=== PATIENT | female | born 1960 | race Caucasian/White ===

== ENCOUNTER 2017-11-24 21:18 | Emergency (ER) | payer BC ==
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
[2017-11-24] MEDS ORDERED: IBUPROFEN 600 MG TABLET (FP) PO ONE ×2 (21:32→21:33)
[2017-11-24 21:40] VITALS: BP 146/81; PULSE 62; TEMP 98; BMI 37.8
== END 2017-11-24 22:07 | disposition home or self-care (01) ==
LOC: FER 21:18
DX: S13.4XXA Sprain of ligaments of cervical spine, initial encounter (principal); V73.5XXA Driver of bus injured in collision with car, pick-up truck or van in traffic accident, initial encounter; Y93.89 Activity, other specified; Y92.410 Unspecified street and highway as the place of occurrence of the external cause; Y99.0 Civilian activity done for income or pay
CPT/HCPCS: 72050-TC-FY; 99281-25

== ENCOUNTER 2020-12-09 01:45 | Emergency (ER) | payer BC ==
[2020-12-09 01:54] VITALS: BP 129/71; PULSE 70; TEMP 98.2; BMI 37.9
[2020-12-09] MEDS ORDERED: IBUPROFEN 400 MG TABLET (FP) PO ONE ×2 (04:09→04:11)
[2020-12-09] MEDS ORDERED: METOCLOPRAMIDE HCL INJECTION 10 MG/2 ML VIAL IVPUSH ONE (04:12)
== END 2020-12-09 04:24 | disposition home or self-care (01) ==
LOC: FER 01:45
PROC: 3E033NZ Introduction of Analgesics, Hypnotics, Sedatives into Peripheral Vein, Percutaneous Approach (ICD-10-PCS; principal; 2020-12-09)
DX: M25.562 Pain in left knee (principal)
CPT/HCPCS: 93971-TC; 99284-25

== ENCOUNTER 2021-08-06 04:29 | Day surgery (SDC) | payer BC ==
[2021-08-02 15:38] VITALS: BMI 38.9
[~2021-08-06 04:29] MED LIST: BUPIVACAINE HCL/PF 0.5% (5MG/ML) 10 ML VIAL IJ ONE
[2021-08-06] MEDS ORDERED: BUPIVACAINE HCL/PF 0.5% (5MG/ML) 10 ML VIAL ONE ×2 (10:14→10:17)
[2021-08-06] MEDS ORDERED: PROPOFOL 20 ML ONE (11:03)
[2021-08-06] MEDS ORDERED: MIDAZOLAM HCL 2 MG/2 ML SINGLE DOSE VIAL ONE (11:04)
[2021-08-06] MEDS ORDERED: ceFAZolin SODIUM 1 GM VIAL IVPB ONE (11:40)
[2021-08-06] MEDS ORDERED: BUPIVACAINE HCL/PF 0.5% (5MG/ML) 10 ML VIAL IJ ONE (12:15)
[2021-08-06] MEDS ORDERED: ONDANSETRON 4 MG/2 ML VIAL IVPUSH PRN (13:53)
[2021-08-06] MEDS ORDERED: oxyCODONE HCL 5 MG TABLET PO PRN ×2 (13:53)
[2021-08-06] MEDS ORDERED: LACTATED RINGERS SOLUTION 1,000 ML IV SCH (14:00)
[2021-08-06] MEDS ORDERED: oxyCODONE HCL 5 MG TABLET ONE (14:05)
[2021-08-06] MEDS ORDERED: oxyCODONE HCL 5 MG TABLET PO ONE (14:08)
[2021-08-06 15:03] VITALS: BP 143/63; PULSE 51; TEMP 97.1
== END 2021-08-06 15:06 | disposition home or self-care (01) ==
LOC: JASU-SURG 04:29
PROVIDERS: ATTEND Orthopaedic Surgery
PROC: 0SBD4ZZ Excision of Left Knee Joint, Percutaneous Endoscopic Approach (ICD-10-PCS; principal; 2021-08-06 11:00)
DX: S83.242A Other tear of medial meniscus, current injury, left knee, initial encounter (principal); M25.562 Pain in left knee; M17.12 Unilateral primary osteoarthritis, left knee; X58.XXXA Exposure to other specified factors, initial encounter; Y93.9 Activity, unspecified; Y92.9 Unspecified place or not applicable
CPT/HCPCS: 88304-TC; 94760